=== PATIENT | male | born 1950 | race Caucasian/White ===

== ENCOUNTER 2017-09-12 09:24 | Inpatient (IN) | payer OTHER, MEDICARE ==
[~2017-09-12] VITALS: Ht 177.8 cm; Wt 78.0 kg
[~2017-09-12 09:24] MED LIST: AMLODIPINE BESY10 M1 PO; CIPRO500 M1 PO; PYRIDIUM100 M1 PO; VALSARTAN160 M1 PO
--- NOTE | 2017-09-12 11:12 | RADIOLOGY REPORT ---
EXAMINATION: XR CHEST CLINICAL INFORMATION: Cough and fever COMPARISON: None TECHNIQUE: 2 views of the chest were obtained. FINDINGS: The lungs are well-inflated. On the frontal view, there appears to be a small area of subtle, patchy opacity in the left lateral lung base (see saved link image). A mild or early pneumonia is possible. Otherwise, lungs are unremarkable. No pleural effusion. Cardiac silhouette is normal in size and hilar contours are normal. The aortic arch is slightly uncoiled. Trachea is midline in position. Bones are unremarkable. Calcified granuloma is present within the spleen. IMPRESSION: There is a subtle, patchy opacity in the left lateral lung base. An early pneumonia is possible. No pleural effusion.
[2017-09-12 12:20] LABS: ABSOLUTE BASOPHIL COUNT 0 /CUMM (0.0-0.2); ABSOLUTE EOSINOPHIL COUNT 0 /CUMM (0.0-0.7); ABSOLUTE MONOCYTE COUNT 1.6 /CUMM (0.10-0.60); EOSINOPHIL % 0.1 % (0-5); HEMATOCRIT 35.2 % (42-52); WHITE BLOOD CELL COUNT 7.1 /CUMM (4.8-10.8)
[2017-09-12 12:24] LABS: ABSOLUTE GRANULOCYTE CT 3.6 /CUMM (1.4-6.5); ABSOLUTE LYMPH COUNT 1.9 /CUMM (1.2-3.4); BASOPHIL % 0.1 % (0.0-2.0); MEAN CORPUSCULAR HGB 32.3 PG (27.0-31.0); MEAN CORPUSCULAR HGB CONC 34.9 G/DL (33.0-37.0); MEAN CORPUSCULAR VOLUME 92.6 FL (80.0-94.0); MEAN PLATELET VOLUME 8.5 FL (7.4-10.4); RBC DISTRIBUTION WIDTH 14.7 % (11.5-14.5)
--- NOTE | 2017-09-12 12:45 | ED GENERAL ADULT ---
History of Present Illness General Chief Complaint: Abdominal Pain/Flank Pain Stated Complaint: ABD PAIN, FEVER, CHILLS Source: patient Exam Limitations: no limitations Vital Signs & Intake/Output Vital Signs & Intake/Output Vital Signs Date Time Temp Pulse Resp B/P B/P Pulse O2 O2 Flow FiO2 Mean Ox Delivery Rate 09/12 1631 99.0 86 18 142/80 99 Room Air 09/12 1404 99.2 88 20 135/73 96 Room Air 09/12 1331 97 Room Air Room Air 09/12 0955 100.0 98 18 117/73 98 Room Air Allergies Coded Allergies: shellfish derived (UNKNOWN 09/12/17) Reconcile Medications Doxycycline Monohydrate 100 MG TABLET 1 TAB PO BID LYME (Reported) Triage Note: 66 YO MALE TO TRIAGE FOR EVAL OF LOWER ABD PAIN. +NAUSEA, STATES LOSS OF APPETITE. TEMP 100.1 IN TRIAGE, STATES HAS BEEN TAKING TYLENOL FOR PAIN (LAST DOSE WAS 4 HOURS AGO). C/O DRY COUGH. STATES SAW HIS PCP LAST WEEK WHO TOLD HIM THEY THOUGH IT WAS LYME, REPORTS HE HAS BEEN TAKING DOXY FOR A WEEK WITHOUT ANY RELIEF OF S/S. STATES THEY SHAKIR BLOOD WORK BUT DIDNT GET RESULTS BACK. Triage Nurses Notes Reviewed? yes Onset: Gradual Duration: day(s): Timing: recent history HPI: 66 year old male presents to the ED with abdominal pain for a couple weeks, along with fatigue, chills, fever. Pt saw PCP and was started on doxcycline for possible tick borne illness. Pt reports infrequent bowel movements. Pt does endorse a dry cough and urinary retention which is being treated by a urologist with Flowmax. He says he intermittently has to straight cath himself. Past History Travel History Traveled to [place] past 21 day No Medical History Any Pertinent Medical History? 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 No Review of Systems Review of Systems Constitutional: Denies: see HPI, unexplained weight loss. EENTM: Reports: no symptoms. Denies: double vision, visual changes. Respiratory: Reports: cough. Denies: short of breath. Cardiovascular: Reports: no symptoms. GI: Reports: abdominal pain. Genitourinary: Denies: see HPI (retention). Musculoskeletal: Reports: no symptoms. Skin: Reports: no symptoms. Neurological/Psychological: Reports: see HPI. Hematologic/Endocrine: Reports: no symptoms. Immunologic/Allergic: Reports: no symptoms. Physical Exam Physical Exam General Appearance: well developed/nourished, alert, awake, mild distress Head: atraumatic, normal appearance Eyes: Bilateral: PERRL, EOMI. Ears, Nose, Throat: normal ENT inspection Neck: normal inspection Respiratory: lungs clear Cardiovascular: regular rate/rhythm Peripheral Pulses: 4+ radial (R), 4+ radial (L) Gastrointestinal: soft, tenderness (bilateral lower quadrant) Back: normal inspection Extremities: normal inspection, normal range of motion Neurologic/Psych: awake, alert, oriented x 3 Skin: intact, normal color, warm/dry Core Measures ACS in differential dx? No CVA/TIA Diagnosis: No Sepsis Present: No Sepsis Focused Exam Completed? No Progress Differential Diagnoses I considered the following diagnoses in my evaluation of the patient: [ Diverticulitis, Lyme disease, babesiosis, sepsis, renal colic, pyelonephritis] Plan of Care: Orders Procedure Date/time Status PROTHROMBIN TIME 09/13 06 Active CBC WITHOUT DIFFERENTIAL 09/13 06 Active Heart Healthy Diet 09/12 D Active Lab Add-on Test 09/12 1517 Active Pathway - chart 09/12 1515 Active House Staff 09/12 1515 Active Patient Data 09/12 1515 Active Patient Data 09/12 1410 Active ED Holding Orders 09/12 1407 Active Admit to inpatient 09/12 1407 Active Vital Signs 09/12 1407 Active Code Status 09/12 1407 Active Intake & Output 09/12 1331 Active C-REACTIVE PROTEIN 09/12 1152 Complete CULTURE,URINE 09/12 1001 Active BLOOD CULTURE 09/12 0857 Active URINALYSIS 09/12 956 Complete TROPONIN LEVEL 09/12 956 Complete LYME TITRE 09/12 956 Complete LIPASE 09/12 956 Complete LACTIC ACID 09/12 956 Complete HIGH SENSITIVITY CRP 09/12 956 Complete COMPREHENSIVE METABOLIC PANEL 09/12 956 Complete CBC WITHOUT DIFFERENTIAL 09/12 956 Complete AMYLASE 09/12 956 Complete EKG 09/12 956 Active VTE Mechanical Prophylaxis 09/12 UNK Active [place], Insertion/Removal/Asses 09/12 UNK Active Current Medications Sig/Iva Start time Last Medication Dose Stop Time Status Admin Azithromycin 250 MG DAILY 09/13 0900 AC (Zithromax) 09/16 09 Heparin Sodium 5,000 UNIT Q8 09/12 2200 AC (Porcine) Lactated Ringer's 1,000 ML ONCE ONE 09/12 1545 AC 09/12 (Lactated Ringers) 09/12 2344 1630 Atovaquone 750 MG BID 09/12 1515 AC 09/12 (Mepron Jen 750MG/ 1605 5ML) Doxycycline Hyclate 100 MG BID 09/12 1515 AC 09/12 (Vibramycin) 09/14 2101 1605 Laboratory Tests 09/12/17 1257: Lactic Acid Cancelled 09/12/17 1223: Urinalysis MOD H, Urine Color YEL, Urine Clarity HAZY H, Urine pH 6.0, Ur Specific [place] 1.015, Urine Protein 30 H, Urine Ketones NEG, Urine Nitrite NEG, Urine Bilirubin NEG@ICTO, Urine Urobilinogen 2.0 H, Ur Leukocyte Esterase NEG, Ur Microscopic SEDIMENT EXAMINED, Urine RBC 3-5, Urine WBC 1-3 H, Ur Epithelial Cells RARE, Urine Bacteria FEW H, Granular Casts 1-3 H, Urine Mucus FEW, Urine Hemoglobin SMALL H, Urine Glucose NEG 09/12/17 1201: Lyme Ab (Western Blot) Pending, Lyme IgG 18 kDa Band Pending, Lyme IgG 23 kDa Band Pending, Lyme IgG 28 kDa Band Pending, Lyme IgG 30 kDa Band Pending, Lyme IgG 39 kDa Band Pending, Lyme IgG 41 kDa Band Pending, Lyme IgG 45 kDa Band Pending, Lyme IgG 58 kDa Band Pending, Lyme IgG 66 kDa Band Pending, Lyme IgG 93 kDa Band Pending, Lyme IgM (Western Blot) Pending, Lyme IgM 23 kDa Band Pending, Lyme IgM 39 kDa Band Pending, Lyme IgM 41 kDa Band Pending 09/12/17 1152: Lyme Disease Antibody 1.54 *H 09/12/17 1152: Anion Gap 12, Estimated GFR 51 L, BUN/Creatinine Ratio 20.7, Glucose 107 H, Lactic Acid 1.3, Calcium 8.7, Total Bilirubin 1.7 H, AST 135 H, ALT 157 H, Alkaline Phosphatase 207 H, Troponin I < 0.01, C-Reactive Prot, Quant > 9.0 H, C-React Prot High Sens > 15.0 H, Total Protein 7.0, Albumin 3.2 L, Globulin 3.8, Albumin/Globulin Ratio 0.8 L, Amylase 46, Lipase 32, CBC w Diff MAN DIFF ORDERED, RBC 3.80 L, MCV 92.6, MCH 32.3 H, MCHC 34.9, RDW 14.7 H, MPV 8.5, Gran % 50.0, Lymphocytes % 27.1, Monocytes % 22.7 H, Eosinophils % 0.1, Basophils % 0.1, Absolute Granulocytes 3.6, Segmented Neutrophils 49, Band Neutrophils 5, Absolute Lymphocytes 1.9, Lymphocytes 31, Monocytes 13 H, Absolute Monocytes 1.6 H, Absolute Eosinophils 0, Absolute Basophils 0, Platelet Estimate DECREASED, Hypochromic-Microcytic 1+, Poikilocytosis 1+, Anisocytosis 1+, Babesia microti DNA PCR Pending Microbiology 09/12 1223 URINE ROUT: Urine Culture - RECD 09/12 1202 BLOOD: Blood Culture - RECD 09/12 1152 BLOOD: Blood Culture - RECD Initial ED EKG: NSR, left axis deviation Departure Departure Disposition: STILL A PATIENT Condition: Stable Clinical Impression Primary Impression: Babesiosis Secondary Impressions: Abdominal pain Referrals: Unknown (PCP/Family) Departure Forms: Customer Survey General Discharge Information Admission Note Spoke With: Chino Toledo MD Documentation of Exam: Documentation of any treatments & extenuating circumstances including Concerns Regarding Discharge (functional status, medication knowledge or non-compliance, living conditions, etc.) that warrant an admission rather than observation: [The patient needs admission for IV fluids, antibiotics, infectious disease consultation, serial hemoglobin and platelet counts.] Critical Care Note Critical Care Note Critical Care Time: non-applicable
[2017-09-12 13:13] LABS: PLATELET COUNT 39 /CUMM (130-400)
--- NOTE | 2017-09-12 14:12 | CT SCAN REPORT ---
EXAMINATION: CT ABD PELVIS W/O IV CONTRAS CLINICAL INFORMATION: Left lower quadrant pain COMPARISON: May 2017 TECHNIQUE: Multidetector volumetric imaging was performed from the superior aspect of the liver through the pubic symphysis Study done without contrast. Sagittal and coronal reformatted images were obtained on the technologist's workstation. DLP: 287 mGy-cm FINDINGS: LOWER THORAX: Included lung bases are clear. HEPATOBILIARY: Evaluation of the liver is limited on noncontrasted study. The liver is mildly enlarged 26 cm. GALLBLADDER: Gallbladder unremarkable. SPLEEN: Spleen is mildly enlarged measuring 14 cm. PANCREAS: No focal mass or ductal dilatation. STOMACH AND GASTROINTESTINAL TRACT: Stomach is grossly unremarkable. There is sigmoid diverticulosis. There is no convincing evidence of acute diverticulitis. No CT evidence of appendicitis. ADRENALS: No adrenal nodules. KIDNEYS/URETERS: There is nonobstructing stone lower calyx LEFT kidney measures 7 x 4 mm. There is no hydronephrosis. Perinephric fat are clear. There is a tiny nonobstructing 1 mm stone upper calyx LEFT kidney. URINARY BLADDER: Decompressed, the wall of which is somewhat thickened, cannot rule out cystitis. There is a 2 mm floating stone in the RIGHT dependent portion of the bladder. PELVIC VISCERA: Unremarkable PERITONEUM: No free air or fluid. LYMPH NODES: No lymphadenopathy. VASCULAR:Abdominal aorta normal in size, no aneurysm found. BONES, ABDOMINAL WALL AND SOFT TISSUES: Age-appropriate changes of the spine and skeletal system, no destructive osteolytic or osteosclerotic bone lesion found IMPRESSION: 1. There is diverticulosis. No convincing evidence of acute diverticulitis. 2. There is a stone lodged in the lower calyx LEFT kidney measure up to 7 mm. There is a 1 mm nonobstructing stone upper calyx LEFT kidney. No hydronephrosis. 3. There is a 2 mm stone passed into the the urinary bladder. ([place]orga image) 3. Hiatal hernia. 4. There is thickening of the wall of the urinary bladder, this is at least in part due to partial decompression, cannot rule out underlying cystitis. Careful correlation with the clinical symptoms is recommended.
--- NOTE | 2017-09-12 14:24 | History & Physical ---
Reyna Dixon 09/12/17 1423: General Information and HPI MD Statement: I have seen and personally examined GUANAKO ESCOBAR and documented this H& P. The patient is a 66 year old M who presented with a patient stated chief complaint of []. Source of Information: patient, family Exam Limitations: no limitations History of Present Illness: 66 year old male with PMH of Lyme (multiple infections treated with doxycycline) , renal stones, urinary retention, HTN (not currently requiring medication), Peripheral neuropathy s/p working near [place] during 11/15. Patient recently underwent lithotripsy in June and July for renal stones. He performs intermittent cath mutlitple times a day 2/2 urinary retention. He presents to the ED with a one week history of abdominal pain, dry cough, fever to 102.8 at home, and severe fatigue. He reports multiple tick bites recently (right abdomen; right buttock; left calf). He went to see his PCP one week ago and was given Doxycycline for presumed Lyme infection. Despite being compliant with this treatment plan, his symptoms have failed to improve. He reports associated headache, dry heeves, sweats, decreased appetite. He denies chills, diarrhea, SOB, chest pain. He also denies recent travel outside the [place] or sick contacts. 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 Home Who Do You Live With? spouse Primary Language: Lao Smoking Status: Never Smoked ETOH Use: denies use Illicit Drug Use: denies illicit drug use Employment History Employment Retired ([employer]) Review of Systems Review of Systems Constitutional: Reports: diaphoresis, fever, malaise. Denies: chills. EENTM: Reports: no symptoms. Cardiovascular: Denies: no symptoms. Respiratory: Reports: cough. Denies: sputum production. GI: Reports: abdominal pain, constipation. Denies: diarrhea, distention, vomiting. Genitourinary: Reports: see HPI. Musculoskeletal: Reports: see HPI. Skin: Reports: lesions (left calf with discoloration). Neurological/Psychological: Reports: no symptoms. Hematologic/Endocrine: Reports: no symptoms. Immunologic/Allergic: Reports: no symptoms. Exam & Diagnostic Data Last 24 Hrs of Vital Signs/I&O Vital Signs Date Time Temp Pulse Resp B/P B/P Pulse O2 O2 Flow FiO2 Mean Ox Delivery Rate 09/12 1404 99.2 88 20 135/73 96 Room Air 09/12 1331 97 Room Air Room Air 09/12 0955 100.0 98 18 117/73 98 Room Air Intake & Output 09/12 1600 09/12 0800 09/12 0000 Intake Total 1000 Output Total Balance 1000 Intake, IV 1000 Patient 173 lb Weight Weight Reported by Patient Measurement Method Physical Exam General Appearance Alert, Oriented X3, Cooperative, No Acute Distress Skin 0.5x0.5cm darken lesion non raised to left calf Skin Temp/Moisture Exam: Warm/Dry HEENT Atraumatic, PERRLA Neck Supple Cardiovascular Regular Rate, Normal S1, Normal S2, No Murmurs Lungs Clear to Auscultation Abdomen Normal Bowel Sounds, Soft, No Tenderness Neurological Normal Tone, Sensation Intact Extremities No Edema, Normal Pulses Assessment/Plan Assessment: 66 year old male with PMH of Lyme (multiple infections treated with doxycycline) , renal stones, urinary retention, HTN (not currently requiring medication), Peripheral neuropathy s/p working near [place] during 11/15. Patient to be admitted to general medicine service for treatment of Babesiosis. Admission Data: T100.0 Pulse 98 RR 18 BP117/73 Sat 98%RA CXR:IMPRESSION: There is a subtle, patchy opacity in the left lateral lung base. An early pneumonia is possible. No pleural effusion. Abdominal CT: IMPRESSION: 1. There is diverticulosis. No convincing evidence of acute diverticulitis. 2. There is a stone lodged in the lower calyx LEFT kidney measure up to 7 mm. There is a 1 mm nonobstructing stone upper calyx LEFT kidney. No hydronephrosis. 3. There is a 2 mm stone passed into the the urinary bladder. (Mayorga image) 4. Hiatal hernia. 5. There is thickening of the wall of the urinary bladder, this is at least in part due to partial decompression, cannot rule out underlying cystitis. Careful correlation with the clinical symptoms is recommended. Differential Dx: Lyme re-infection; early Pneumonia; Abdominal pain 2/2 renal stones; Babesiosis Problem List: 1. Babesiosis 2. Thrombocytopenia-likely 2/2 babesiosis 3. Transaminititis-likely 2/2 babesiosis 4. H/O Urinary retention requiring intermittent straight cath 5. H/O renal stones and stones present on CT this admission 6. CKD Cr 1.4-likely 2/2 mild dehydration from decreased appetite and PO intake Plan: -Begin treatment for Babesiosis per ID recs: Atovaquone 750mg bid along with Azithromycin 500mg PO x1 then 250mg PO for 7-10 days -Continue Doxycycline 100mg bid for three more days to complete Lyme treatment of 10days. -IV hydration for CKD Cr 1.4 -Morin cath placement for urinary retention -Monitor labs in AM: cbc, bep, LFTs As Ranked By This Provider Problem List: 1. Abdominal pain 2. Babesiosis Core Measures/Misc (11/21) Acute Coronary Syndrome ACS Diagnosis: No Congestive Heart Failure Congestive Heart Failure Diagnosis No Cerebrovascular Accident CVA/TIA Diagnosis: No VTE (View Protocol) VTE Risk Factors Age>40 No Mechanical VTE Prophylaxis d/t N/A MechProphylax Ordered No VTE Pharm Prophylaxis d/t NA PharmProphylax ordered Sepsis (View protocol) Sepsis Present: No If YES complete Sepsis Event Note If YES complete Sepsis Event Note Farrah DUCKWORTH,Rajiv 09/12/17 1519: General Information and HPI Allergies/Medications Home Med list Doxycycline Monohydrate 100 MG TABLET 1 TAB PO BID LYME (Reported) Core Measures/Misc (11/21) Sepsis (View protocol) If YES complete Sepsis Event Note If YES complete Sepsis Event Note Resident Review Statement Resident Statement: examined this patient, discussed with phd intern, agreed with phd intern, discussed with family, reviewed EMR data (avail), discussed with nursing , discussed with case mgmt, reviewed images Other Findings: Mr. Brewer is a 66-year-old male with past medical history of hypertension, peripheral neuropathy, and urinary retention who presents with abdominal pain. The patient notes that for the past week he has been experiencing fatigue and fever. Last Tuesday he went to his primary care doctor who diagnosed him with Lyme disease. He has had multiple episodes of eye disease in the past. He received a prescription for doxycycline has been taking it. On he went back to the PCP and was not any better but the doctor told him to continue the medication. Today he is presenting because he continues to not feel well. Otherwise, the patient has had kidney stones in the past and is followed by Dr. Bowman. He last had a lithotripsy a few months ago. He gets frequent bites and further reports headaches, nonproductive cough, nausea, and dry heaves. He has no joint pain, recent travel, sick contacts, nasal congestion, or diarrhea. On presentation, vital signs were T1 100.0, HR 98, RR 18, BP 117/73, saturating 98% on room air. Exam: General: Patient appears stated age, alert and orientedx3. HEENT: PERRL. No goiter. No palpable lymph nodes. Cardiovascular: Regular rate and rhythm, no murmurs, rubs, or gallops. Lungs: Clear to auscultation bilaterally. Abdomen: Normal bowel sounds. Nontender to palpation in all four quadrants. Skin: No rashes. Neuro: CN II-XII grossly intact. Ext: No edema, pulses normal. Laboratories were significant for hemoglobin 12.3, MCV 92.6, platelets 39, BUN 29, creatinine 1.4, glucose 107, total bilirubin 1.7, AST 135, ALT 157, alkaline phosphatase 207, troponin less than 0.01, CRP greater than 9. Urinalysis showed 30 protein, 13 WBCs. Chest x-ray showed a patchy left lower lobe opacity and CT abdomen/pelvis with a 7 minute millimeter stone in the left kidney. He will be admitted to general medicine and treated for the following problems: 1. Babeosis 2. Nephrolithiasis #Babeosis: Patient presents with history of frequent tick bites, thrombocytopenia, and peripheral smear showing ring forms in RBCs consistent with babeosis. He has received 7 days of doxycycline for presumed Lyme infection so we will continue this treatment as well. -Infectious disease consult -Doxycycline for 3 more days -Azithromycin and atovaquone -IVF hydration -Morin catheter for history of urinary retention - Patient normally straight caths himself 4-5 times a day -Trend CBC/LFTs #Nephrolithiasis: Patient is a history of nephrolithiasis and is followed by Dr. Perez. He has a 7 mm stone in the left kidney and does have some mild abdominal pain. However is more likely that this is related to the infection. He can follow-up as an outpatient -Outpatient f/u with Dr. Perez #Chronic medical problems -Continue home medications DVT prophylaxis with heparin Heart healthy diet Full code [place] DUCKWORTH,Chino 09/12/171: Core Measures/Misc (11/21) Sepsis (View protocol) If YES complete Sepsis Event Note If YES complete Sepsis Event Note Attending MD Review Statement Attending Statement Attending MD Statement: examined this patient, discuss w/resident/PA/BOILER/CHILLER TECHNICIAN, agreed w/resident/PA/BOILER/CHILLER TECHNICIAN, discussed with family, reviewed EMR data (avail), reviewed images, amended to note Attending Assessment/Plan: The patient is a 66 yo male with h/o HTN, nephrolithiasis (s/p lithotripsy), urinary retention (?etiology- self caths multiple x/day), peripheral neuropathy, and prior Lyme disease who presented in the ED with c/o fever to 102.8, abdominal discomfort, and dry cough. He has had recent tick bites and was placed on oral Doxycycline by his PCP 1 week ago without improvement. Bloodwork in ED showed RBC inclusions c/w Babesiosis. Platelet count was reduced at 39K and LFT' s were abnormal. His Cr had also risen. PO intake has been diminished and has had fevers. Physical Exam: VS: T 100.0-99.2 (on tylenol), P 98, R 18, BP 117/74, PO 98% RA HEENT: eyes- PERRLA, EOMI zeny- dry mucosa Neck: no JVD/bruits Chest: clear (mild cough) Cor: RRR nl S1, S2 w/o murm Abd: BS+, soft, mild lower abdominal discomfort w/o focal tenderness, guarding or rebound Ext: no edema, pulses 2+ Skin: diminished turgor Labs/Tests- as above Impression/Plan: #Tick Borne Disease- peripheral smear c/w Babesiosis. Cannot exclude Lyme/ Anaplasma, however patient has not responded to 1 week of po Doxycycline suggesting symptoms and findings are most c/w acute Babesiosis. Has thrombocytopenia, abnormal LFT's, fever, recent tick bite, etc. Plan: Will admit to general medical floor. ID consult (Dr. Mcknight- done). Will continue Doxycycline and add Zithromax and Atovaquone for Babesiosis coverage. #Thrombocytopenia- Platelets 39K- no evidence of bleeding. Concern if count drops further. Plan: Follow-up platelet count in morning. Watch for signs of bleeding. #Abnormal LFT's- Transaminitis- c/w tick borne disease. Plan: Will trend. Check INR in morning. #ROBERT/CKD- h/o urinary stones and obstruction with urinary retention requiring self cath at home (unclear if this is obstructive vs neurogenic bladder?). The patient is mildly volume depleted due to fever and diminished po intake. Cr was 1.8 05/22 and is now 1.4 (had been down to 1.3 per patient). Has dry mucous membranes and diminished skin turgor c/w volume depletion. Plan: Agree with IV hydration with NS. Follow up BEP. Will place morin for convenience this evening and resume self cath when discharged.
[2017-09-12] MEDS ORDERED: DOXYCYCLINE MO100 M1 PO (14:52)
--- NOTE | 2017-09-12 15:04 | Cons- Infect Disease ---
General Information and HPI Consulting Request Date of Consult: 09/12/17 Requested By: Paris Uribe Reason for Consult: Rule out Babesiosis Source of Information: patient, family, old records History of Present Illness: This is a 66-year-old man with a history of hypertension, nephrolithiasis and Lyme disease, begun on Doxycycline 1 week prior to admission for presumed Lyme disease after presenting to his primary care physician with a 3 to 4 day history of fevers, chills and fatigue, admitted today after presenting to the emergency room with persistent fevers and fatigue, associated with mild abdominal discomfort. On admission he was febrile to 100. Laboratory data revealed a white blood cell count of 7000, H&H 12 and 35, with his peripheral smear revealing red cell inclusions, platelets 39,000, BUN/creatinine 29 and 1.4, bilirubin 1.7, alkaline phosphatase 207, AST/ALT 135 and 157. Urinalysis 3-5 RBC/1-3 WBCs. Chest x-ray revealed a subtle patchy opacity in the left lateral lung base. CT of the abdomen and pelvis revealed a mildly enlarged spleen, a nonobstructing stone in the lower calyx of the left kidney, measuring 7 x 4 mm, with no hydronephrosis, a tiny nonobstructing 1 mm stone in the upper calyx of the left kidney and a decompressed bladder, with a thickened wall and a 2 mm floating stone in the right dependent portion. He does report frequent outdoor activity and tick exposure and has removed several ticks from his body this year. He denies any recent travel. Allergies/Medications Allergies: Coded Allergies: MDX - Shellfish (SHELLFISH) (11/09/10) Home Med List: Amlodipine Besylate 10 MG TABLET 1 TAB PO DAILY HEART (Reported) Ciprofloxacin HCl (Cipro) 500 MG TABLET 1 TAB PO BID UTI Phenazopyridine HCl (Pyridium) 100 MG TABLET 1 TAB PO TID DYSURIA NOTE THIS MEDICATION MAY CHANGE THE COLOR OF URINE ORANGE. 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 Surgical History Surgical History: hernia repair-inguinal, s/p recent lithotripsy Review of Systems Review of Systems All Other Systems: Reviewed and Negative Exam & Diagnostic Data Last 24 Hrs of Vital Signs/I&O Vital Signs Date Time Temp Pulse Resp B/P B/P Pulse O2 O2 Flow FiO2 Mean Ox Delivery Rate 09/12 1404 99.2 88 20 135/73 96 Room Air 09/12 1331 97 Room Air Room Air 09/12 0955 100.0 98 18 117/73 98 Room Air Intake & Output 09/12 1600 09/12 0800 09/12 0000 Intake Total 1000 Output Total Balance 1000 Intake, IV 1000 Patient 173 lb Weight Weight Reported by Patient Measurement Method Physical Exam Other Physical Findings: He is awake and alert in no acute distress. T-max 100. Skin reveals a sunburned face and neck. HEENT exam is negative. Neck is supple with no adenopathy. Lungs are clear. Heart regular rhythm with no murmur. Abdomen is soft, nontender with positive bowel sounds. Back no CVA tenderness. Extremities no cyanosis, clubbing or edema. Neuro is without focality. Last 24 Hours of Lab Results: Laboratory Tests 09/12 09/12 1223 1152 Chemistry Sodium (137 - 145 mmol/L) 139 Potassium (3.5 - 5.1 mmol/L) 4.2 Chloride (98 - 107 mmol/L) 102 Carbon Dioxide (22 - 30 mmol/L) 25 Anion Gap (5 - 16) 12 BUN (9 - 20 mg/dL) 29 H Creatinine (0.7 - 1.2 mg/dL) 1.4 H Estimated GFR (>60 ml/min) 51 L BUN/Creatinine Ratio (7 - 25 %) 20.7 Glucose (65 - 99 mg/dL) 107 H Lactic Acid (0.7 - 2.1 mmol/L) 1.3 Calcium (8.4 - 10.2 mg/dL) 8.7 Total Bilirubin (0.2 - 1.3 mg/dL) 1.7 H AST (17 - 59 U/L) 135 H ALT (21 - 72 U/L) 157 H Alkaline Phosphatase (< 127 U/L) 207 H Troponin I (<0.11 ng/ml) < 0.01 C-Reactive Prot, Quant (<1.0 mg/dL) > 9.0 H C-React Prot High Sens (1.0 - 3.0 mg/L) > 15.0 H Total Protein (6.3 - 8.2 g/dL) 7.0 Albumin (3.5 - 5.0 g/dL) 3.2 L Globulin (1.9 - 4.2 gm/dL) 3.8 Albumin/Globulin Ratio (1.1 - 2.2 %) 0.8 L Amylase (30 - 110 U/L) 46 Lipase (23 - 300 U/L) 32 Hematology CBC w Diff MAN DIFF ORDERED WBC (4.8 - 10.8 /CUMM) 7.1 RBC (4.70 - 6.10 /CUMM) 3.80 L Hgb (14.0 - 18.0 G/DL) 12.3 L Hct (42 - 52 %) 35.2 L MCV (80.0 - 94.0 FL) 92.6 MCH (27.0 - 31.0 PG) 32.3 H MCHC (33.0 - 37.0 G/DL) 34.9 RDW (11.5 - 14.5 %) 14.7 H Plt Count (130 - 400 /CUMM) 39 L MPV (7.4 - 10.4 FL) 8.5 Gran % (42.2 - 75.2 %) 50.0 Lymphocytes % (20.5 - 51.1 %) 27.1 Monocytes % (1.7 - 9.3 %) 22.7 H Eosinophils % (0 - 5 %) 0.1 Basophils % (0.0 - 2.0 %) 0.1 Absolute Granulocytes (1.4 - 6.5 /CUMM) 3.6 Segmented Neutrophils (42.2 - 75.2 %) 49 Band Neutrophils (0.0 - 5.0 %) 5 Absolute Lymphocytes (1.2 - 3.4 /CUMM) 1.9 Lymphocytes (20.5 - 51.1 %) 31 Monocytes (1.7 - 9.3 %) 13 H Absolute Monocytes (0.10 - 0.60 /CUMM) 1.6 H Absolute Eosinophils (0.0 - 0.7 /CUMM) 0 Absolute Basophils (0.0 - 0.2 /CUMM) 0 Platelet Estimate (ADEQUATE) DECREASED Hypochromic-Microcytic 1+ Poikilocytosis 1+ Anisocytosis 1+ Serology Lyme Disease Antibody Pending Urines Urinalysis MOD H Urine Color (YEL,AMB,STR) YEL Urine Clarity (CLEAR) HAZY H Urine pH (5.0 - 8.0) 6.0 Ur Specific [place] (1.001 - 1.035) 1.015 Urine Protein (NEG,<30 MG/DL) 30 H Urine Ketones (NEG) NEG Urine Nitrite (NEG) NEG Urine Bilirubin (NEG) NEG@ICTO Urine Urobilinogen (0.1 - 1.0 EU/dl) 2.0 H Ur Leukocyte Esterase (NEG) NEG Ur Microscopic SEDIMENT EXAMINED Urine RBC (0 - 5 /HPF) 3-5 Urine WBC (0 - 2 /HPF) 1-3 H Ur Epithelial Cells (NONE,FEW) RARE Urine Bacteria (NEG/NONE) FEW H Granular Casts (NONE /LPF) 1-3 H Urine Mucus (FEW,NONE) FEW Urine Hemoglobin (NEG) SMALL H Urine Glucose (N MG/DL) NEG Last 24 Hours of Hang Results: Blood cultures 2 September 12 pending Urine culture September 12 pending Diagnostic Data Recent Imaging Findings: Chest x-ray revealed a subtle patchy opacity in the left lateral lung base. CT of the abdomen and pelvis revealed a mildly enlarged spleen, a nonobstructing stone in the lower calyx of the left kidney, measuring 7 x 4 mm, with no hydronephrosis, a tiny nonobstructing 1 mm stone in the upper calyx of the left kidney and a decompressed bladder, with a thickened wall and a 2 mm floating stone in the right dependent portion. Assessment/Plan Assessment/Plan Impression: This is a 66-year-old man with a history of Lyme disease, begun on Doxycycline 1 week prior to admission for presumed Lyme disease after presenting to his primary care physician with a 3 to 4 day history of fevers, chills and fatigue, admitted today with persistent fevers and fatigue, associated with mild abdominal discomfort, found to be febrile to 100 with thrombocytopenia and with his peripheral smear revealing red cell inclusions. 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 The possibility of co-infection with another organism carried by the Ixodes scapularis tick, including Lyme disease or Anaplasma, could be considered and it may be reasonable to complete a 10 day course of Doxycycline for this possibility. He will, however, need to be started on specific treatment for Babesiosis. Suggestion: 1. Serum for PCR for Babesia 2. Begin Azithromycin 500 mg p.o. today, then 250 mg p.o. every 24 hours and Atovaquone 750 mg p.o. every 12 hours 3. Continue Doxycycline 100 mg p.o. every 12 hours for 3 more days Consult Acknowledgment - Thank you for your consult request.
--- NOTE | 2017-09-12 15:06 | Admission Certification ---
Admission Certification Certification Statement - As attending physician, I certify that at the time of - admission, based on clinical presentation, severity of - symptoms, need for further diagnostic testing and - therapeutic interventions, and risk of adverse outcomes - without in-hospital treatment, in my clinical assessment, - this patient requires an acute hospital stay for a minimum - of two nights or longer. I have also considered psychsocial - factors such as support system, advanced age, financial - issues, cognitive issues, and failed out-patient treatments, - past re-admission history, safety of patient, and lack of - compliance as applicable. Specific rationale supporting this admission is: The patient presents with fever, ROBETR (due to volume depletion), elevated LFT's, thrombocytopenia (plt 39,000) c/w Babesiosis. Has had tick bites and has been on po Doxycycline for 1 week. Needs admission for IV hydration, monitor Cr, ID consult and Rx for Babesiosis/Lyme.
[2017-09-12 20:14] VITALS: BP 112/68
[2017-09-13 06:56] VITALS: BP 124/74
[2017-09-13 08:27] LABS: ABSOLUTE BASOPHIL COUNT 0 /CUMM (0.0-0.2); ABSOLUTE EOSINOPHIL COUNT 0 /CUMM (0.0-0.7); ABSOLUTE GRANULOCYTE CT 2.7 /CUMM (1.4-6.5); ABSOLUTE LYMPH COUNT 1.8 /CUMM (1.2-3.4); ABSOLUTE MONOCYTE COUNT 1.4 /CUMM (0.10-0.60); BASOPHIL % 0.1 % (0.0-2.0); EOSINOPHIL % 0.2 % (0-5); MEAN CORPUSCULAR HGB 32.7 PG (27.0-31.0); MEAN CORPUSCULAR HGB CONC 34.9 G/DL (33.0-37.0); MEAN CORPUSCULAR VOLUME 93.4 FL (80.0-94.0); PLATELET COUNT 46 /CUMM (130-400); RBC DISTRIBUTION WIDTH 14.8 % (11.5-14.5); RED BLOOD CELL CT 3.05 /CUMM (4.70-6.10)
[2017-09-13] MEDS ORDERED: AZITHROMYCIN250 M1 PO ×3 (08:34→11:52)
[2017-09-13] MEDS ORDERED: MEPRON750 MG/51 PO ×3 (08:34→11:52)
--- NOTE | 2017-09-13 08:35 | Patient Discharge Instructions ---
Discharge Instructions General Discharge Information You were seen/treated for: Babesiosis, Lyme disease Watch for these problems: Fever, chest pain, shortness of breath Special Instructions: Please take all medications as directed. Please follow-up with primary care. Diet Continue normal diet: Yes Activity Full Activity/No Limits: Yes Acute Coronary Syndrome Inclusion Criteria At DC or during hospital stay patient has or had the following: ACS DIAGNOSIS No Discharge Core Measures Meds if any: Prescribed or Continued at Discharge Meds if any: NOT Prescribed or Continued at Discharge Congestive Heart Failure Inclusion Criteria At DC or during hospital stay patient has or had the following: CHF DIAGNOSIS No Discharge Core Measures Meds if any: Prescribed or Continued at Discharge Meds if any: NOT Prescribed or Continued at Discharge Cerebrovascular accident Inclusion Criteria At DC or during hospital stay patient has or had the following: CVA/TIA Diagnosis No Discharge Core Measures Meds if any: Prescribed or Continued at Discharge Meds if any: NOT Prescribed or Continued at Discharge Venous thromboembolism Inclusion Criteria VTE Diagnosis No VTE Type NONE VTE Confirmed by (Test) NONE Discharge Core Measures - Per Current guidelines, there needs to be overlap - treatment for the first 5 days of Warfarin therapy. - If discharged on Warfarin prior to 5 days of - overlap therapy, the patient will need to be - assessed for post discharge needs including - *Post discharge parental anticoagulation - *Warfarin and/or parental anticoagulation education - *Follow up date to check INR post discharge At least 5 days overlap therapy as Inpatient No Meds if any: Prescribed or Continued at Discharge Note: Overlap Therapy is Warfarin and Anticoagulant Meds if any: NOT Prescribed or Continued at Discharge
[2017-09-13 08:47] LABS: PT 14.3 SEC (9.4-12.5)
[2017-09-13 08:54] LABS: HEMATOCRIT 28.5 % (42-52)
--- NOTE | 2017-09-13 09:10 | PN- Housestaff ---
See Addendum Subjective Follow-up For: BABESIOSIS Complaints: no complaints Subjective: Patient states he feels 'much better' after receiving antibiotics overnight. He states he felt a little warm overnight with Temp 100.1. He otherwise feels fine and denies chills, n/v/d, chest pain, SOB. He does report h/o constipation and would like some bowel care. He hopes to change to oral abx and discharge home today. Review of Systems Constitutional: Reports: see HPI. Objective Last 24 Hrs of Vital Signs/I&O Vital Signs Date Time Temp Pulse Resp B/P B/P Pulse O2 O2 Flow FiO2 Mean Ox Delivery Rate 09/13 0656 98.9 80 20 124/74 97 Room Air 09/12 2249 100.1 09/12 2228 100.1 09/12 2013 98.9 80 20 112/68 96 Room Air 09/12 1631 99.0 86 18 142/80 99 Room Air 09/12 1404 99.2 88 20 135/73 96 Room Air 09/12 1331 97 Room Air Room Air 09/12 0955 100.0 98 18 117/73 98 Room Air Intake & Output 09/13 1600 09/13 0800 09/13 0000 Intake Total 480 420 Output Total 600 Balance 480 -180 Intake, Oral 480 420 Output, Urine 600 Patient 172 lb Weight Weight Reported by Patient Measurement Method Physical Exam General Appearance: Alert, Oriented X3, Cooperative, No Acute Distress Skin: No Rashes Skin Temp/Moisture Exam: Warm/Dry HEENT: Atraumatic, PERRLA Neck: Supple Cardiovascular: Regular Rate, Normal S1, Normal S2 Lungs: Clear to Auscultation Abdomen: Normal Bowel Sounds, Soft, No Tenderness Neurological: Normal Tone, Sensation Intact Extremities: No Edema, Normal Pulses Reproductive (MALE) morin cath in place Assessment/Plan Assessment: 66 year old male with PMH of Lyme (multiple infections treated with doxycycline) , renal stones, urinary retention, HTN (not currently requiring medication), Peripheral neuropathy s/p working near [employer] during 11/15. Patient to be admitted to general medicine service for treatment of Babesiosis. Problem List: 1. Babesiosis-ID following. Started on atovaquone and azithromycin for 7-10days 2. Thrombocytopenia-likely 2/2 babesiosis-improving 46 today compated to 39 yesterday 3. Transaminititis-likely 2/2 babesiosis-awaiting labs to monitor 4. H/O Urinary retention requiring intermittent straight cath-will dc morin cath per patient request when his arrives with his supplies for self intermittent cath. 5. H/O renal stones and stones present on CT this admission-no clinical symptoms at this time 6. CKD Cr 1.4-likely 2/2 mild dehydration from decreased appetite and PO intake- below baseline of Cr 1.8. Dispo: anticipate dc home self care today with continue abx course for treatment of babesiosis and finish treatment for possible Lyme reinfection. DVT prophylaxis: heparin/ALPS/ambulate Problem List: 1. Babesiosis 2. Abdominal pain Pain Ratin Pain Location: none Pain Goal: Remain pain free Pain Plan: see a/p Tomorrow's Labs & Rationales: none
--- NOTE | 2017-09-13 10:47 | PN- Infect Dx ---
Subjective Subjective: T-max 100.1. He feels improved with increased energy. Objective Last 24 Hrs of Vital Signs/I&O Vital Signs Date Time Temp Pulse Resp B/P B/P Pulse O2 O2 Flow FiO2 Mean Ox Delivery Rate 09/13 08 Room Air 09/13 0656 98.9 80 20 124/74 97 Room Air 09/12 2249 100.1 09/12 2228 100.1 09/12 2013 98.9 80 20 112/68 96 Room Air 09/12 1631 99.0 86 18 142/80 99 Room Air 09/12 1404 99.2 88 20 135/73 96 Room Air 09/12 1331 97 Room Air Room Air Intake & Output 09/13 1600 09/13 0800 09/13 0000 Intake Total 480 420 Output Total 600 Balance 480 -180 Intake, Oral 480 420 Output, Urine 600 Patient 172 lb Weight Weight Reported by Patient Measurement Method Physical Exam Other Physical Findings: He appears comfortable in no acute distress Lungs are clear Heart regular rhythm with no murmur Abdomen is soft, nontender with positive bowel sounds Results Last 24 Hours of Lab Results: Laboratory Tests 09/13 09/13 09/12 1030 0622 1257 Chemistry Lactic Acid Cancelled Total Bilirubin Pending Direct Bilirubin Pending AST Pending ALT Pending Alkaline Phosphatase Pending Total Protein Pending Albumin Pending Coagulation PT (9.4 - 12.5 SEC) 14.3 H INR (0.90 - 1.17) 1.31 H Hematology CBC w Diff MAN DIFF ORDERED WBC (4.8 - 10.8 /CUMM) 6.0 RBC (4.70 - 6.10 /CUMM) 3.05 L Hgb (14.0 - 18.0 G/DL) 10.0 L Hct (42 - 52 %) 28.5 L MCV (80.0 - 94.0 FL) 93.4 MCH (27.0 - 31.0 PG) 32.7 H MCHC (33.0 - 37.0 G/DL) 34.9 RDW (11.5 - 14.5 %) 14.8 H Plt Count (130 - 400 /CUMM) 46 L MPV (7.4 - 10.4 FL) 8.0 Gran % (42.2 - 75.2 %) 46.0 Lymphocytes % (20.5 - 51.1 %) 30.8 Monocytes % (1.7 - 9.3 %) 22.9 H Eosinophils % (0 - 5 %) 0.2 Basophils % (0.0 - 2.0 %) 0.1 Absolute Granulocytes (1.4 - 6.5 /CUMM) 2.7 Segmented Neutrophils (42.2 - 75.2 %) 42 L Band Neutrophils (0.0 - 5.0 %) 5 Absolute Lymphocytes (1.2 - 3.4 /CUMM) 1.8 Lymphocytes (20.5 - 51.1 %) 29 Monocytes (1.7 - 9.3 %) 24 H Absolute Monocytes (0.10 - 0.60 /CUMM) 1.4 H Absolute Eosinophils (0.0 - 0.7 /CUMM) 0 Absolute Basophils (0.0 - 0.2 /CUMM) 0 Platelet Estimate (ADEQUATE) DECREASED Polychromasia 1+ Anisocytosis 1+ 09/12 09/12 09/12 1223 1201 1152 Serology Lyme Disease Antibody (RATIO) 1.54 *H Lyme Ab (Western Blot) Pending Lyme IgG 18 kDa Band Pending Lyme IgG 23 kDa Band Pending Lyme IgG 28 kDa Band Pending Lyme IgG 30 kDa Band Pending Lyme IgG 39 kDa Band Pending Lyme IgG 41 kDa Band Pending Lyme IgG 45 kDa Band Pending Lyme IgG 58 kDa Band Pending Lyme IgG 66 kDa Band Pending Lyme IgG 93 kDa Band Pending Lyme IgM (Western Blot) Pending Lyme IgM 23 kDa Band Pending Lyme IgM 39 kDa Band Pending Lyme IgM 41 kDa Band Pending Urines Urinalysis MOD H Urine Color (YEL,AMB,STR) YEL Urine Clarity (CLEAR) HAZY H Urine pH (5.0 - 8.0) 6.0 Ur Specific [place] (1.001 - 1.035) 1.015 Urine Protein (NEG,<30 MG/DL) 30 H Urine Ketones (NEG) NEG Urine Nitrite (NEG) NEG Urine Bilirubin (NEG) NEG@ICTO Urine Urobilinogen (0.1 - 1.0 EU/dl) 2.0 H Ur Leukocyte Esterase (NEG) NEG Ur Microscopic SEDIMENT EXAMINED Urine RBC (0 - 5 /HPF) 3-5 Urine WBC (0 - 2 /HPF) 1-3 H Ur Epithelial Cells (NONE,FEW) RARE Urine Bacteria (NEG/NONE) FEW H Granular Casts (NONE /LPF) 1-3 H Urine Mucus (FEW,NONE) FEW Urine Hemoglobin (NEG) SMALL H Urine Glucose (N MG/DL) NEG 09/12 1152 Chemistry Sodium (137 - 145 mmol/L) 139 Potassium (3.5 - 5.1 mmol/L) 4.2 Chloride (98 - 107 mmol/L) 102 Carbon Dioxide (22 - 30 mmol/L) 25 Anion Gap (5 - 16) 12 BUN (9 - 20 mg/dL) 29 H Creatinine (0.7 - 1.2 mg/dL) 1.4 H Estimated GFR (>60 ml/min) 51 L BUN/Creatinine Ratio (7 - 25 %) 20.7 Glucose (65 - 99 mg/dL) 107 H Lactic Acid (0.7 - 2.1 mmol/L) 1.3 Calcium (8.4 - 10.2 mg/dL) 8.7 Total Bilirubin (0.2 - 1.3 mg/dL) 1.7 H AST (17 - 59 U/L) 135 H ALT (21 - 72 U/L) 157 H Alkaline Phosphatase (< 127 U/L) 207 H Troponin I (<0.11 ng/ml) < 0.01 C-Reactive Prot, Quant (<1.0 mg/dL) > 9.0 H C-React Prot High Sens (1.0 - 3.0 mg/L) > 15.0 H Total Protein (6.3 - 8.2 g/dL) 7.0 Albumin (3.5 - 5.0 g/dL) 3.2 L Globulin (1.9 - 4.2 gm/dL) 3.8 Albumin/Globulin Ratio (1.1 - 2.2 %) 0.8 L Amylase (30 - 110 U/L) 46 Lipase (23 - 300 U/L) 32 Hematology CBC w Diff MAN DIFF ORDERED WBC (4.8 - 10.8 /CUMM) 7.1 RBC (4.70 - 6.10 /CUMM) 3.80 L Hgb (14.0 - 18.0 G/DL) 12.3 L Hct (42 - 52 %) 35.2 L MCV (80.0 - 94.0 FL) 92.6 MCH (27.0 - 31.0 PG) 32.3 H MCHC (33.0 - 37.0 G/DL) 34.9 RDW (11.5 - 14.5 %) 14.7 H Plt Count (130 - 400 /CUMM) 39 L MPV (7.4 - 10.4 FL) 8.5 Gran % (42.2 - 75.2 %) 50.0 Lymphocytes % (20.5 - 51.1 %) 27.1 Monocytes % (1.7 - 9.3 %) 22.7 H Eosinophils % (0 - 5 %) 0.1 Basophils % (0.0 - 2.0 %) 0.1 Absolute Granulocytes (1.4 - 6.5 /CUMM) 3.6 Segmented Neutrophils (42.2 - 75.2 %) 49 Band Neutrophils (0.0 - 5.0 %) 5 Absolute Lymphocytes (1.2 - 3.4 /CUMM) 1.9 Lymphocytes (20.5 - 51.1 %) 31 Monocytes (1.7 - 9.3 %) 13 H Absolute Monocytes (0.10 - 0.60 /CUMM) 1.6 H Absolute Eosinophils (0.0 - 0.7 /CUMM) 0 Absolute Basophils (0.0 - 0.2 /CUMM) 0 Platelet Estimate (ADEQUATE) DECREASED Hypochromic-Microcytic 1+ Poikilocytosis 1+ Anisocytosis 1+ Serology Babesia microti DNA PCR Pending Last 24 Hours of Hang Results: Blood cultures 2 September 12 negative Urine culture September 12 negative Assessment/Plan ID Impression: Overall improved, though he still had a low-grade fever overnight, with his platelet count increased and his white blood cell count remaining normal, though his H&H has decreased, possibly in part secondary to rehydration, but likely also related to his underlying infection, which is presumed to be secondary to Babesiosis, with intraerythrocytic ring forms noted on his peripheral smear. He is currently on Azithromycin and Atovaquone, Day 2 of treatment for Babesiosis, and Doxycycline, Day 8 of treatment for the possibility of co-infection with Lyme or Anaplasma. His Lyme ARCENIO is positive, but this may be secondary to his previous Lyme disease as the titer, once positive, stays positive indefinitely. Suggestion: 1. Follow-up serum PCR for Babesia 2. Continue Azithromycin and Atovaquone to complete a 10 day course 3. Continue Doxycycline for 2 more days
--- NOTE | 2017-09-13 16:08 | Discharge Summary ---
Visit Information Visit Dates Admission Date: 09/12/17 Discharge Date: 09/13/17 Hospital Course Course Attending Physician: Chino Toledo MD Primary Care Physician: Ravi Meng MD Hospital Course: 66 year old male with PMH of Lyme (multiple infections treated with doxycycline) , renal stones, urinary retention, HTN (not currently requiring medication), Peripheral neuropathy s/p working near [employer] during 11/15. Patient was admitted to general medicine service for treatment of Babesiosis. Admission Data: T100.0 Pulse 98 RR 18 BP117/73 Sat 98%RA CXR:IMPRESSION: There is a subtle, patchy opacity in the left lateral lung base. An early pneumonia is possible. No pleural effusion. Abdominal CT: IMPRESSION: 1. There is diverticulosis. No convincing evidence of acute diverticulitis. 2. There is a stone lodged in the lower calyx LEFT kidney measure up to 7 mm. There is a 1 mm nonobstructing stone upper calyx LEFT kidney. No hydronephrosis. 3. There is a 2 mm stone passed into the the urinary bladder. ([place] image) 4. Hiatal hernia. 5. There is thickening of the wall of the urinary bladder, this is at least in part due to partial decompression, cannot rule out underlying cystitis. Careful correlation with the clinical symptoms is recommended. Differential Dx: Lyme re-infection; early Pneumonia; Abdominal pain 2/2 renal stones; Babesiosis Problem List: 1. Babesiosis 2. Thrombocytopenia-likely 2/2 babesiosis 3. Transaminititis-likely 2/2 babesiosis 4. H/O Urinary retention requiring intermittent straight cath 5. H/O renal stones and stones present on CT this admission 6. CKD Cr 1.4-likely 2/2 mild dehydration from decreased appetite and PO intake Patient was treated with antibiotics and IV fluids and ID was consulted and following. He improved clinically faster than expected. He felt well enough to continue the rest of his treatment at home with the assistance of his . He was stable for discharge with labs improving including improved platelet count. He was instructed to follow up with PCP and to complete the entire antibiotic course for babesiosis as well as finish his already started treatment for possible Lyme prescribed by his PCP prior to admission. He was sent home with prescriptions for Atovaquone and Azithromycin for a total of 10 days. Allergies: Coded Allergies: shellfish derived (UNKNOWN 09/12/17) Disposition Summary Disposition Principal Diagnosis: babesiosis Additional Diagnosis: transaminitis possible lyme infection Discharge Disposition: home or self care Discharge Instructions General Discharge Information Code Status: Full Code Patient's Diet: regular Patient's Activity: as tolerated Follow-Up Instructions/Appts: Take all medications as prescribed Follow up with your PCP Medications at Discharge Discharge Medications: Continue taking these medications: Doxycycline Monohydrate (Doxycycline Monohydrate) 100 MG TABLET 1 Tablet ORAL TWICE DAILY Qty = 60 Comments: Last Taken: 09/13/17 Time: 9:30AM Start taking the following new medications: Azithromycin (Azithromycin) 250 MG TABLET 250 Milligram ORAL DAILY Qty = 8 No Refills Instructions: . Comments: Last Taken: 09/13/17 Time: 9:30AM Atovaquone (Mepron) 750 MG/5 ML ORAL.SUSP 750 Milligram ORAL TWICE DAILY Qty = 1 No Refills Instructions: Please take until 09/21/17. Comments: Last Taken: 09/13/17 Time: 9:30AM Copies To: Chino Toledo MD; Roxanna DUCKWORTH,Roddy Palacios Attending Review Statement Documenting Attending: Chino Toledo MD Other Findings: The patient was seen and discussed with house staff and ID. His symptoms improved significantly after 3 doses of antibiotics. Fever has resolved, still with mild non-productive cough. Platelet count has risen and thus less risk of bleeding. Agree with discharge to home today on po antibiotics. Close OP follow- up.
== END 2017-09-13 12:20 | DRG 869 ==
LOC: ERH 09:24 → 2NA 14:07 → ERHI 14:07 → ENRESERV 18:19 → 2NA 18:54 → ENPENDDIS 09-13 10:12 → ENTRNSPT 09-13 11:53 → EDTRNSPT 09-13 12:18 → EDTRNSPTSTS 09-13 12:18 → 2NA 09-13 12:20 → CMPTRNSPT 09-13 12:25
PROVIDERS: Internal Medicine; Physician Assistant
DX: B60.0 Babesiosis (principal); D69.59 Other secondary thrombocytopenia; R74.0 Nonspecific elevation of levels of transaminase and lactic acid dehydrogenase [LDH]; R33.8 Other retention of urine; N20.0 Calculus of kidney; Z87.442 Personal history of urinary calculi; G62.9 Polyneuropathy, unspecified; E86.0 Dehydration; R10.30 Lower abdominal pain, unspecified; I12.9 Hypertensive chronic kidney disease with stage 1 through stage 4 chronic kidney disease, or unspecified chronic kidney disease; N18.9 Chronic kidney disease, unspecified; W57.XXXA Bitten or stung by nonvenomous insect and other nonvenomous arthropods, initial encounter
CPT/HCPCS: 2NAP; 86618; 36415; 36592; 71046; 74176; 81001; 87040; 87086; 93005; 93010; 96360; J0456; J1644; J7120